=== PATIENT | male | born 1990 | race Caucasian/White ===

== ENCOUNTER 2024-10-08 06:23 | Emergency (ER) | payer OTHER ==
[~2024-10-08] VITALS: Ht 170.2 cm; Wt 111.5 kg
[2024-10-08 06:59] LABS: BASO % 0.3 % (0.0-1.0); EOS # 0.2 10^3/uL (0.0-0.5); HEMATOCRIT 44.9 % (42.0-52.0); HEMOGLOBIN 15.1 g/dl (13.5-17.5); LYMPH # 2.4 10^3/uL (1.5-5.0); LYMPH % 31.9 % (24.0-44.0); MEAN CORPUSCULAR HEMOGLOBIN 29.5 pg (27.0-33.0); MEAN CORPUSCULAR HGB CONC 33.6 g/dl (32.0-36.5); MEAN CORPUSCULAR VOLUME 87.9 fl (80.0-96.0); MONO # 0.5 10^3/uL (0.0-0.8); MONO % 7.3 % (2.0-8.0); NEUTROPHILS # 4.2 10^3/uL (1.5-8.5); NEUTROPHILS % 57.1 % (36.0-66.0); PLATELET COUNT, AUTOMATED 312 10^3/uL (150-450); RED BLOOD COUNT 5.11 10^6/uL (4.30-6.10); WHITE BLOOD COUNT 7.4 10^3/uL (4.0-10.0)
[2024-10-08 07:22] LABS: CK-MB VALUE MASS < 1.0 NG/ML (<3.6)
[2024-10-08 07:23] LABS: BLOOD UREA NITROGEN 20 MG/DL (9-23); CALCIUM LEVEL 9.4 MG/DL (8.5-10.1); CARBON DIOXIDE LEVEL 28 MMOL/L (20-31); CHLORIDE LEVEL 106 MMOL/L (98-107); CREATININE FOR GFR 0.88 MG/DL (0.70-1.30); GLOMERULAR FILTRATION RATE > 60.0 (>60); GLUCOSE, FASTING 116 MG/DL (60-100); POTASSIUM SERUM 4.6 MMOL/L (3.5-5.1); SODIUM LEVEL 144 MMOL/L (136-145)
[2024-10-08 07:29] LABS: CPK CREATINE PHOSPHOKINASE 177 U/L (46-171); MB/CK RELATIVE INDEX 0.56 (< OR =4)
[2024-10-08] MEDS: KETOROLAC 30 MG/ML 1ML VIAL IV ONE (07:54)
[2024-10-08 08:44] LABS: CK-MB VALUE MASS < 1.0 NG/ML (<3.6)
[2024-10-08 08:56] LABS: CPK CREATINE PHOSPHOKINASE 178 U/L (46-171); MB/CK RELATIVE INDEX 0.56 (< OR =4)
[2024-10-08 09:00] VITALS: BP 115/56; TEMP 97; O2SAT 98
== END 2024-10-08 09:13 | disposition home or self-care (01) ==
LOC: M ED 06:23
DX: R07.9 Chest pain, unspecified (principal)
CPT/HCPCS: 71045; 80048; 82550; 82553; 84484; 85025; 85379; 93005; 93041; 94760; 96374; 99284; J1885